=== PATIENT | female | born 1990 | race Caucasian/White ===

== ENCOUNTER → 2016-09-08 | Outpatient (CLI) | payer OTHER ==
[~2016-09-08] MED LIST: ALBU17IN2 INH; BACL10TA2 PO; CETI10CH PO; CLAR10CA3 PO; DULO30CA PO; ISOVUE-370 76% 100ML VIAL (Q9967) As Ordered ONE; LYRI75CA PO; NAPR500T PO; NORT25CA2 PO; NYST100024 TOP; OXYC1TAB23 PO; PERC5TAB6 PO; ROPI1TAB PO; SERT-141 PO; SUMA100T2 PO; TIZA4CAP3 PO; TOPA100T8 PO; TOPA50TA7 PO; TRAZ100T4 PO; TRIPOIN OP
--- NOTE | 2016-09-08 16:26 | REP ---
CT abdomen and pelvis without and with IV contrast: CT urogram. History: Bilateral double ureters. Comparison CT study is from 08/18/2009. CT contrast dose: 100 mL of Isovue-[address] findings: Digital preliminary mobile developer radiograph is unremarkable. The lung bases are clear. The liver and the spleen are normal in size homogeneous in texture. Faintly opaque gallstones are seen in the dependent portion the gallbladder. No pancreatic abnormality is seen. No adrenal lesion is seen on either side. Normal caliber aorta is seen. No retroperitoneal mass or adenopathy is seen. Single non-stenotic renal arteries are observed bilaterally. 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 Only one distal ureteral segment is observed although this could mean that the second distal ureter is stripped of contrast at the time of this delayed postcontrast CT acquisition. The left distal ureter is singular and normal. No collecting system defect is seen in the upper tracts. Small and large intestinal bowel loops are unremarkable. The patient is status post hysterectomy. A normal appendix is visible in the right lower quadrant. 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 Only one ureter is seen on the right below this. No abnormality on the left. No urinary tract calculus or hydronephrosis seen. Signed by Antonio Polanco MD 09/09/2016 02:58 P
== END ==
LOC: M RAD 10:19
PROVIDERS: ATTEND Specialist
DX: Q62.5 Duplication of ureter (principal)

== ENCOUNTER → 2016-10-26 | Outpatient (CLI) | payer OTHER ==
[~2016-10-26] MED LIST changes: -ISOVUE-370 76% 100ML VIAL (Q9967) As Ordered ONE; -SERT-141 PO; +SERT50TA PO
--- NOTE | 2016-10-26 15:47 | REP ---
Clinical: Ovarian cyst. Technique: Transabdominal pelvic ultrasound followed by transvaginal examination for better evaluation of the adnexa. Findings: The patient is noted to be status post hysterectomy. Bladder is normal and measures 9.7 x 6.0 x 3.6 cm. Bilateral ovaries are normal in appearance and without cysts. Right ovary measures 1.7 x 0.8 x 1.1 cm. Left ovary measures 1.4 x 0.6 x 1.5 cm. No pelvic fluid or adnexal mass lesion. Impression: Normal bilateral ovaries without cystic changes. Status post hysterectomy. Signed by Graham Hector MD 10/26/2016 03:38 P
== END ==
LOC: M RAD 14:57
PROVIDERS: ATTEND Specialist
DX: R10.2 Pelvic and perineal pain (principal)